=== PATIENT | female | born 1975 | race Caucasian/White ===

== ENCOUNTER 2020-04-09 22:32 | Emergency (ER) | payer SELFPAY ==
[~2020-04-09] VITALS: Ht 157.5 cm; Wt 95.3 kg
[2020-04-09 23:00] VITALS: BP_SYST 157
--- NOTE | 2020-04-09 23:02 | NUR ---
Patient triaged and placed in waiting room. VSS and patient appears in no acute distress at this time. Awaiting available bed, and MD notified of need for MSE.
--- NOTE | 2020-04-10 01:45 | NUR ---
[facility] CALLED MULTIPLE TIMES, PARKING LOT SEARCHED AND NAME CALLED. NO ANSWER
--- NOTE | 2020-04-10 05:15 | NUR ---
Patient left without being seen.
== END 2020-04-10 05:14 | disposition left against medical advice (07) ==
LOC: SED 22:32
DX: S61.256A Open bite of right little finger without damage to nail, initial encounter (principal); W54.0XXA Bitten by dog, initial encounter; Y93.89 Activity, other specified; Y92.89 Other specified places as the place of occurrence of the external cause; Y99.8 Other external cause status; Z53.21 Procedure and treatment not carried out due to patient leaving prior to being seen by health care provider